=== PATIENT | female | born 1990 | race Two or more races ===

== ENCOUNTER 2019-03-21 05:52 | Emergency (ER) | payer OTHER ==
[~2019-03-21] VITALS: Ht 162.6 cm; Wt 92.8 kg
[2019-03-21 05:55] VITALS: BP 147/88
--- NOTE | 2019-03-21 06:19 | NUR ---
Discharge instructions given. All questions and concerns addressed. Patient ambulatory with a steady gait. Belongings with patient.
== END 2019-03-21 06:21 | disposition home or self-care (01) ==
LOC: ED 06:15
DX: K02.9 Dental caries, unspecified (principal)
CPT/HCPCS: 99283